=== PATIENT | female | born 1975 | race Caucasian/White ===

== ENCOUNTER 2024-03-23 13:43 | Emergency (ER) | payer BC, MEDICAID ==
[~2024-03-23] VITALS: Ht 167.6 cm; Wt 57.7 kg
[2024-03-23 13:50] VITALS: TEMP 99.9
[2024-03-23 14:15] VITALS: BP 111/75; PULSE 104; O2SAT 100
[2024-03-23 14:31] VITALS: RESP 16
== END 2024-03-23 16:05 | disposition left against medical advice (07) ==
LOC: ER 13:43
DX: R20.0 Anesthesia of skin (principal); Z53.21 Procedure and treatment not carried out due to patient leaving prior to being seen by health care provider

== ENCOUNTER 2024-04-29 11:40 | Emergency (ER) | payer BC, MEDICAID ==
[~2024-04-29] VITALS: Ht 167.6 cm; Wt 58.5 kg
[2024-04-29 12:20] VITALS: TEMP 97.8
[2024-04-29 13:49] LABS: BASOPHILS % (AUTO) 0.2 % (0-1); EOSINOPHILS # (AUTO) 0.1 X10'3 (0-0.9); EOSINOPHILS % (AUTO) 1.3 % (0-6); HEMATOCRIT 35.8 % (35.0-45.0); HEMOGLOBIN 11.8 g/dl (12.0-16.0); LYMPHOCYTES # (AUTO) 1.7 X10'3 (1.1-4.8); LYMPHOCYTES % (AUTO) 27.1 % (21-51); MEAN CORPUSCULAR HEMOGLOBIN 28.1 PG (27.0-31.0); MEAN CORPUSCULAR VOLUME 85.3 FL (78-98); MEAN PLATELET VOLUME 7.5 FL (7.4-10.4); MONOCYTES # (AUTO) 0.4 X10'3 (0-0.9); MONOCYTES % (AUTO) 6.8 % (2-12); NEUTROPHILS # (AUTO) 4.2 X10'3 (1.8-7.7); NEUTROPHILS % (AUTO) 64.6 % (42-75); PLATELET COUNT 252 X10'3 (140-440); RED CELL DISTRIBUTION WIDTH 13.5 % (11.5-14.5); WHITE BLOOD COUNT 6.4 X10'3 (4.5-11.0)
[2024-04-29 13:52] LABS: BILIRUBIN,URINE NEGATIVE (Neg); CLARITY,URINE SLIGHTLY CLOUDY (Clear); COLOR,URINE YELLOW (Yellow); GLUCOSE, URINE NEGATIVE (Neg); KETONES,URINE NEGATIVE (Neg); LEUKOCYTE ESTERASE ,URINE TRACE (Neg); NITRITES, URINE NEGATIVE (Neg); OCCULT BLOOD,URINE LARGE (Neg); PROTEIN,URINE NEGATIVE (Neg); UROBILINOGEN,URINE 0.2 E.U/dL (0.2-1.0)
[2024-04-29 13:57] LABS: UA COLLECTION TYPE CLN CATCH MIDSTREAM
[2024-04-29 14:10] LABS: ALANINE AMINOTRANSFERASE 18 U/L (12-78); ALBUMIN 3.9 G/DL (3.4-5.0); ALBUMIN/GLOBULIN RATIO 1.2 (1.1-1.5); ALKALINE PHOSPHATASE 40 IU/L (46-116); ANION GAP 8 (8-16); ASPARTATE AMINO TRANSFERASE 17 U/L (10-37); BILIRUBIN,TOTAL 0.4 MG/DL (0.1-1.0); BLOOD UREA NITROGEN 15 MG/DL (7-18); BUN/CREATININE RATIO 19.2 (10.0-20.0); CALCIUM 9.1 MG/DL (8.5-10.1); CHLORIDE 106 MMOL/L (99-107); CREATININE 0.78 MG/DL (0.40-0.90); GLUCOSE 89 MG/DL (70-104); LIPASE 50 U/L (16-77); POTASSIUM 3.7 MMOL/L (3.5-5.1); SODIUM 141 MMOL/L (135-145); TOTAL CARBON DIOXIDE 26.8 MMOL/L (24-32); TOTAL PROTEIN 7.1 G/DL (6.4-8.2); eCRCL 79 ML/MIN; eGFR 78 ML/MIN
[2024-04-29 14:13] LABS: SQUAMOUS EPITHELIAL CELL,UR MANY /LPF (FEW)
[2024-04-29 14:14] LABS: MUCUS STRANDS FEW /LPF (Neg)
[2024-04-29 14:15] LABS: RBC,URINE TNTC /HPF (0-2)
[2024-04-29 14:16] LABS: BACTERIA,URINE FEW /HPF (Neg); TRANSITIONAL EPI CELLS,URINE FEW /HPF
[2024-04-29 14:17] LABS: AMORPHOUS PHOSPHATES 1+; WBC,URINE 0-4 /HPF (0-4)
[2024-04-29 14:55] LABS: BETA HCG,QUANTITATIVE 3 mIU/ml
[2024-04-29] MEDS ORDERED: HYDR-3965 PO (15:01)
[2024-04-29] MEDS ORDERED: PHEN-716 PO (15:01)
[2024-04-29 15:11] VITALS: BP 116/75; PULSE 77; RESP 18; O2SAT 100
[2024-04-29] MEDS ORDERED: HYDR-3972 PO (18:10)
== END 2024-04-29 15:13 | disposition home or self-care (01) ==
LOC: ER 11:42
DX: N23 Unspecified renal colic (principal); R31.9 Hematuria, unspecified; Z88.8 Allergy status to other drugs, medicaments and biological substances; Z79.899 Other long term (current) drug therapy
CPT/HCPCS: 36415; 74176; 76700; 80053; 81001; 83690; 84702; 85025; 99284

== ENCOUNTER 2024-11-13 14:50 | Emergency (ER) | payer BC, MEDICAID ==
[~2024-11-13] VITALS: Ht 167.6 cm; Wt 54.8 kg
[~2024-11-13 14:50] MED LIST: PHEN-716 PO
[2024-11-13 15:11] VITALS: PULSE 89
[2024-11-13] MEDS ORDERED: BETA45OI5 TOP (15:53)
[2024-11-13] MEDS ORDERED: PRED50TA PO (15:53)
[2024-11-13] MEDS ORDERED: HYDR-3686 PO (15:53)
[2024-11-13] MEDS: dexamethasone sod phosphate 10mg/ml inj IM STA (16:01)
[2024-11-13 16:03] VITALS: BP 122/74; RESP 16; TEMP 97.8; O2SAT 89
== END 2024-11-13 16:04 | disposition home or self-care (01) ==
LOC: ER 14:50
DX: R21 Rash and other nonspecific skin eruption (principal); Z88.5 Allergy status to narcotic agent; Z87.440 Personal history of urinary (tract) infections
CPT/HCPCS: 96372; 99283; J1100

== ENCOUNTER 2025-08-22 14:53 | Emergency (ER) | payer BC, MEDICAID ==
[~2025-08-22] VITALS: Ht 167.6 cm; Wt 63.0 kg
[~2025-08-22 14:53] MED LIST changes: +BETA45OI5 TOP; +HYDR-3686 PO; +PRED50TA PO
[2025-08-22 15:03] VITALS: BP 133/78; PULSE 80; TEMP 97.8; O2SAT 100
[2025-08-22 15:19] LABS: LEUKOCYTE ESTERASE ,URINE NEGATIVE (Neg); NITRITES, URINE NEGATIVE (Neg); OCCULT BLOOD,URINE LARGE (Neg)
[2025-08-22 15:22] LABS: URINE HCG NEGATIVE (NEG)
[2025-08-22 15:25] LABS: UA COLLECTION TYPE CLN CATCH MIDSTREAM
[2025-08-22 15:26] LABS: SQUAMOUS EPITHELIAL CELL,UR FEW /LPF (FEW)
[2025-08-22 15:31] LABS: AMORPHOUS PHOSPHATES 2+
--- NOTE | 2025-08-22 16:04 | Physician Documentation ---
History of Present Illness ~ Chief Complaint: Urinary Symptoms Stated Complaint: KIDNEY PAIN Time Seen by MD: 15:11 OK to notify your PCP?: Yes Primary Medical Doctor: [facility] Source: patient Mode of Arrival: POV Exam Limitations: no limitations HPI Presents with right flank pain and blood in urine for the past 1 week. She does have a history of kidney stones but it has been years but she does state it might feel the same. Poor historian. Has not taken any medication for her symptoms prior to arrival. Medication Reconciliation Allergies: Coded Allergies: codeine (Verified Allergy, Unknown, 08/22/25) Scheduled Betamethasone/Propylene Glyc (Betamethasone Dp Aug 0.05% Oin), 1 APPLIC TOP Q12H Hydroxyzine Hcl (Atarax), 1-2 TAB PO Q8H Phenazopyridine HCl (Pyridium), 1 TAB PO Q8H Prednisone (Prednisone), 1 TAB PO DAILY Past Medical History Past Medical History: UTI Past Surgical History: no surgical history Alcohol Use: None Drug Use: none Lives with: Family Lives In: Home Physical Exam Vital Signs: RN Vital Signs have been reviewed: Yes, Temperature: 97.8, Source: Temporal, Heart Rate: 80, Respiratory Rate: 16, BP: 133/78, Pulse Oximetry: 100, Weight: 63.000 Oxygen Flow Rate: 0 Pulse Oximetry Reflects: adequate oxygenation Physical Exam General: Alert, no apparent distress. HEENT: PERRL, EOMI, no injection, moist mucous membranes. Neck: Full range of motion. Respiratory: Lungs clear, no respiratory distress. Chest: No accessory muscle use. Cardiovascular: Regular rate and rhythm, no murmurs. Gastrointestinal: Soft, nontender, nondistended. Bowels sounds present. Back: No CVA tenderness Extremities: Normal range of motion, no deformity. Neurologic: Oriented x4. Psychiatric: Normal mood and affect. Skin: Normal color, warm and dry. No edema, no ecchymosis. Progress Results/Orders Reviewed/noted all lab results: Yes Results/Orders Orders - AMIE MUHAMMAD Ct Abdomen Pelvis (08/22/25 15:59) Completed Orders - AMIE MUHAMMAD Ketorolac Trometh 15mg/Ml Vial (Toradol (08/22/25 16:00) Ct Abdomen Pelvis (08/22/25 15:59) Medications Received in ER Medications (Trade) Dose Ordered Sig/Pamela Route PRN Reason Start Time Stop Time Status Last Admin Dose Admin (Toradol injection) 15 mg ONCE ONCE IM 08/22/25 16:00 08/22/25 16:01 DC 08/22/25 16:11 15 MG Vital Signs 08/22/25 08/22/25 15:03 16:11 Temp 97.8 Pulse 80 Resp 16 16 B/P (MAP) 133/78 Pulse Ox 100 O2 Flow Rate 0 Laboratory Tests Test 08/22/25 15:00 Urine Specimen Description Cln catch midstream Urine Color Yellow Urine Clarity Slightly cloudy Urine pH 7.5 Urine Specific [place] 1.010 Urine Protein Negative Urine Glucose (UA) Negative Urine Ketones Negative Urine Occult Blood Large H Urine Nitrite Negative Urine Bilirubin Negative Urine Urobilinogen 0.2 Urine Leukocyte Esterase Negative Urine RBC 3-10 Urine WBC 0-4 Urine Squamous Epithelial Cells Few Urine Amorphous Phosphates 2+ Urine Bacteria 1+ Urine Culture Indicated Not ind Volume Urine Centrifuged 10 ml Urine HCG, Qualitative Negative Urine Comment EKG/XRAY/CT/US/VASC/MRI CT : Impression CT scan as interpreted by me; no free air, no hydronephrosis or nephrolithiasis. No obvious bowel obstruction. Left ovarian/adnexal lesion measuring 5 cm unchanged since previous scan from 2023. Medical Decision Making Additional information obtaine: old records, family Findings Physical exam is unremarkable. Patient complains of right flank pain and UTI symptoms. Urinalysis shows hematuria but no signs of infection. Culture was not indicated. I did a CT scan of abdomen pelvis without contrast. Results show there is a 5 cm ovarian/adnexal cyst on the left side which is unchanged from previous imaging in 2023. She also has some bowel wall thickening on the left side. Appendix was not well visualized. No hydronephrosis or nephrolithia sis present. I discussed these findings with the patient. She was given discharge instructions and return instructions. She was given Toradol in the department for pain relief. I discussed this case with Dr. Raymond, who agrees that this patient is stable for discharge. Urinary Diff Dx:Considerations: Include: AAA, Bowel obstruction, Ovarian torsion, Pyelonephritis, Renal failure, Urolithiasis, Urinary retention, UTI Genital Diff Dx:Considerations: Include: Other Departure Disposition: HOME / SELF CARE / HOMELESS Impression: Primary Impression: Hematuria Additional Impression: Flank pain Condition: Stable Discharge Instructions: Flank Pain, Adult Additional Instructions: Your CT scan was negative for kidney stones for kidney enlargement. There was no bladder mass seen. Her urinalysis showed blood in the urine but no signs of infection. Please follow up with her primary care provider regarding these findings. Referrals: NO PRIMARY CARE PROVIDER (PCP) Education Educated: Patient Educated regarding: diagnosis, treatment, prognosis, need for follow up Additional Comment Medical Screen Exam This patient recieved a medical screening examination. After reviewing the individual's medical complaints with presenting symptoms and performing an appropriate physical examination, it was determined that no immediate life- threatening emergency medical condition is present. This individual is also not a women having contractions. Signature Scribe Signature: . Attestation: Scribed for Amie Muhammad by Amie Mathews NP . 08/22/25 19:37 Parts of this note were created using [employer] voice recognition software program. While efforts were made to correct any mistakes made by this voice recognition software program, nonsensical phrases may remain in this note. In addition, there may be errors and syntax, grammar, content and spelling. AMIE MUHAMMAD Aug 22, 2025 16:04
[2025-08-22 16:11] VITALS: RESP 16
[2025-08-22] MEDS: ketorolac trometh 15mg/ml vial 15 MG/ML ML IM ONE (16:11)
--- NOTE | 2025-08-22 16:44 | RADIOLOGY REPORT ---
Indication: hematuria, possible kidney stone right side Technique: CT axial images of the abdomen and pelvis are obtained without contrast. Coronal and sagittal reformats were obtained. Radiation Dose Information: CTDI volume is 10.3 mGy. Dose-length product is 500 mGy*cm Comparison: CT CT ABDOMEN PELVIS on DOS: 04/29/24 report only, images unavailable FINDINGS: There is limited interpretation of the abdomen and pelvis without administration of intravenous contrast. Lung bases demonstrate no pleural effusion. Adrenal glands, spleen, pancreas, liver unremarkable in shape. Gallbladder contracted. The kidneys demonstrate no hydronephrosis / nephrolithiasis. Left renal hemorrhagic /proteinaceous cyst measuring 1 cm. Gastric distention. Small bowel loops are demonstrating mild wall thickening in the left abdomen with mild surrounding stranding. Moderate volume stool throughout the colon. The appendix is not adequately visualized. Bladder is partially distended. There is a large left ovarian/ adnexal cystic appearing lesion measuring 5 cm. No free pelvic fluid. No inguinal lymphadenopathy. [id number] bilateral sacroiliac degenerative joint disease. IMPRESSION: Limited evaluation without contrast. No hydronephrosis / nephrolithiasis. Mild bowel wall thickening of the small bowel loops within the left abdomen with adjacent mesenteric stranding could represent sequela of enteritis, inflammatory disease. Left ovarian/ adnexal lesion measuring 5 cm. Recommend pelvic ultrasound to further characterize. This is also previously described on the previous CT scan. Moderate volume stool within the colon. Appendix is not definitively visualized. Other findings as described.
== END 2025-08-22 17:50 | disposition home or self-care (01) ==
LOC: ER 14:54
DX: R31.9 Hematuria, unspecified (principal); R10.A1 Flank pain, right side; Z88.5 Allergy status to narcotic agent; Z87.442 Personal history of urinary calculi; Z79.899 Other long term (current) drug therapy; Z87.440 Personal history of urinary (tract) infections
CPT/HCPCS: 74176; 81001; 81025; 96372; 99285; J1885

== ENCOUNTER 2025-09-19 20:19 | Emergency (ER) | payer BC, MEDICAID ==
[~2025-09-19] VITALS: Ht 172.7 cm; Wt 60.0 kg
[2025-09-19 20:27] VITALS: BP 113/80; PULSE 82; TEMP 99.3; O2SAT 99
[2025-09-19 20:33] VITALS: RESP 16
--- NOTE | 2025-09-19 20:40 | Physician Documentation ---
History of Present Illness ~ Chief Complaint: Urinary Symptoms Stated Complaint: UTI Time Seen by MD: 21:35 OK to notify your PCP?: Yes Primary Medical Doctor: [facility] Source: patient Mode of Arrival: POV Exam Limitations: no limitations HPI Reports having UTI symptoms for the past few days. She reports that she has been having low back pain, foul-smelling urine, increased urination and painful urination. She is not taking any azo yet. Does have baseline confusion with early onset Alzheimer's according to her visitor. Denies any fevers, nausea or vomiting. Medication Reconciliation Allergies: Coded Allergies: codeine (Verified Allergy, Unknown, 08/22/25) Scheduled Betamethasone/Propylene Glyc (Betamethasone Dp Aug 0.05% Oin), 1 APPLIC TOP Q12H Hydroxyzine Hcl (Atarax), 1-2 TAB PO Q8H Nitrofurantoin Monohyd/M-Cryst (Macrobid 100 mg Capsule), 1 CAP PO Q12H Phenazopyridine HCl (Pyridium), 1 TAB PO Q8H Phenazopyridine Hcl (Pyridium tablet), 1 TAB PO Q8H Prednisone (Prednisone), 1 TAB PO DAILY Past Medical History Past Medical History: UTI Past Surgical History: no surgical history Alcohol Use: None Drug Use: none Lives with: Family Lives In: Home Review of Systems All Other Systems at this time: Reviewed and Negative Physical Exam Vital Signs: RN Vital Signs have been reviewed: Yes, Temperature: 99.3, Heart Rate: 82, Respiratory Rate: 16, BP: 113/80, Pulse Oximetry: 99, Weight: 60.000 Oxygen Flow Rate: 0 Pulse Oximetry Reflects: adequate oxygenation Physical Exam General: Alert, no distress. HEENT: No injection, moist mucous membranes. Neck: Full range of motion. Respiratory: No respiratory distress, equal chest rise and fall. Chest: No accessory muscle use. Cardiovascular: Regular rate and rhythm. Back: No CVA tenderness. Gastrointestinal: Nondistended, nontender, no rebound tenderness or guarding, bowel sounds normal Extremities: Normal range of motion, no deformity. Neurologic: Oriented x4. Psychiatric: Normal mood and affect. Skin: Normal color, warm and dry. Progress Results/Orders Reviewed/noted all lab results: Yes Results/Orders Completed Orders - KATIE,AMIE D [employer] Nitrofur [place]/Nitrofuran Macr (Macrobid (09/19/25 21:40) Phenazopyridine Tablet (Pyridium Tablet) (09/19/25 21:45) Vital Signs 09/19/25 09/19/25 20:27 20:33 Temp 99.3 Pulse 82 Resp 18 16 B/P (MAP) 113/80 Pulse Ox 99 O2 Flow Rate 0 Laboratory Tests Test 09/19/25 20:27 09/19/25 20:50 Urine Specimen Description Non-specified Urine Color Yellow Urine Clarity Clear Urine pH 6.5 Urine Specific [place] <=1.005 Urine Protein Negative Urine Glucose (UA) Negative Urine Ketones Negative Urine Occult Blood Moderate H Urine Nitrite Negative Urine Bilirubin Negative Urine Urobilinogen 0.2 Urine Leukocyte Esterase Trace H Urine RBC 10-20 Urine WBC 0-4 Urine Squamous Epithelial Cells Few Urine Bacteria None seen Urine Culture Indicated Indicated Volume Urine Centrifuged 10 ml Urine Comment White Blood Count 9.7 Red Blood Count 4.47 Hemoglobin 12.3 Hematocrit 37.2 Mean Corpuscular Volume 83.1 Mean Corpuscular Hemoglobin 27.5 Mean Corpuscular Hemoglobin Concent 33.1 Red Cell Distribution Width 14.2 Platelet Count 366 Mean Platelet Volume 7.1 L Neutrophils (%) (Auto) 63.4 Lymphocytes (%) (Auto) 26.2 Monocytes (%) (Auto) 8.8 Eosinophils (%) (Auto) 1.3 Basophils (%) (Auto) 0.3 Neutrophils # (Auto) 6.1 Lymphocytes # (Auto) 2.5 Monocytes # (Auto) 0.8 Eosinophils # (Auto) 0.1 Basophils # (Auto) 0.0 CBC Comment Sodium Level 142 Potassium Level 3.5 Chloride Level 109 H Carbon Dioxide Level 27.1 Anion Gap 6 L Blood Urea Nitrogen 13 Creatinine 0.77 Estimated GFR/1.73 m2 79 BUN/Creatinine Ratio 16.9 Glucose Level 88 Calcium Level 8.8 Albumin 3.6 Chemistry Comments Medical Decision Making Additional information obtaine: old records, family Findings Presents with UTI symptoms. Exam is unremarkable, vital signs are stable and she is afebrile. Urinalysis shows cultures indicated with positive blood, WBCs and trace leukocyte esterase. She has not taken azo today so I gave her some Pyridium while here in the department as well as Macrobid. No signs of sepsis or kidney stone. Urinary Diff Dx:Considerations: Include: Pyelonephritis, Renal failure, Urinary Obstruction, Urolithiasis, Urinary retention, UTI Genital Diff Dx:Considerations: Include: Other Departure Disposition: 01 HOME / SELF CARE / HOMELESS Impression: Primary Impression: Acute urinary tract infection Condition: Stable Discharge Instructions: Urinary Tract Infection, Adult Additional Instructions: Drink plenty of fluids. Please return to the emergency department if you develop any new or concerning symptoms such as severe nausea and vomiting and unable to keep liquids down, if you develop severe back/flank or stomach pain, or if your symptoms are not clearly improving at home. Some people with this infection are sent home on a medication to numb the urinary tract. If you were sent home on this medication, do not be alarmed if your urine turns dark orange or reddish in color, this is a safe side effect of this medication. Referrals: NO PRIMARY CARE PROVIDER (PCP) Prescriptions Phenazopyridine Hcl (Pyridium tablet) 100 Mg Tablet 1 TAB PO Q8H for urinary discomfort for 2 Days, #6 TAB 0 Refills Prov: AMIE MUHAMMAD 09/19/25 Nitrofurantoin Monohyd/M-Cryst (Macrobid 100 mg Capsule) 100 Mg Capsule 1 CAP PO Q12H for 7 Days, #14 CAP 0 Refills Prov: AMIE MUHAMMAD 09/19/25 Education Educated: Patient Educated regarding: diagnosis, treatment, prognosis, need for follow up Additional Comment Medical Screen Exam This patient recieved a medical screening examination. After reviewing the i ndividual's medical complaints with presenting symptoms and performing an appropriate physical examination, it was determined that no immediate life- threatening emergency medical condition is present. This individual is also not a women having contractions. Signature Scribe Signature: . Attestation: Scribed for Amie Muhammad by Amie Mathews NP . 09/19/25 21:52 Parts of this note were created using [employer] voice recognition software program. While efforts were made to correct any mistakes made by this voice recognition software program, nonsensical phrases may remain in this note. In addition, there may be errors and syntax, grammar, content and spelling. AMIE MUHAMMAD Sep 19, 2025 20:40
[2025-09-19 21:18] LABS: LEUKOCYTE ESTERASE ,URINE TRACE (Neg); NITRITES, URINE NEGATIVE (Neg); OCCULT BLOOD,URINE MODERATE (Neg)
[2025-09-19 21:18] LABS: MEAN PLATELET VOLUME 7.1 FL (7.4-10.4); RED CELL DISTRIBUTION WIDTH 14.2 % (11.5-14.5)
[2025-09-19 21:19] LABS: UA COLLECTION TYPE NON-SPECIFIED
[2025-09-19 21:25] LABS: CREATININE 0.77 MG/DL (0.40-0.90); TOTAL CARBON DIOXIDE 27.1 MMOL/L (24-32); eCRCL 81 ML/MIN; eGFR 79 ML/MIN
[2025-09-19 21:32] LABS: SQUAMOUS EPITHELIAL CELL,UR FEW /LPF (FEW)
[2025-09-19] MEDS ORDERED: NITR100C6 PO (21:41)
[2025-09-19] MEDS ORDERED: PHEN-786 PO (21:42)
[2025-09-19] MEDS: phenazopyridine 100mg tablet PO ONE (22:00)
[2025-09-19] MEDS: nitrofuran monohydrate/nitrofuran macrocrysal 100 MG (MacroBID) capsule PO ONE (22:00)
== END 2025-09-19 22:04 | disposition home or self-care (01) ==
LOC: ER 20:20
DX: N39.0 Urinary tract infection, site not specified (principal); Z87.440 Personal history of urinary (tract) infections; Z88.5 Allergy status to narcotic agent; Z79.899 Other long term (current) drug therapy
CPT/HCPCS: 36415; 80048; 81001; 85025; 87088; 99283